=== PATIENT | female | born 1995 | race Caucasian/White ===

== ENCOUNTER 2018-05-31 19:06 | Outpatient (CLI) | payer OTHER ==
[2018-05-31] MEDS: ACETAMINOPHEN 500 MG TAB PO (20:24)
[2018-05-31 20:44] LABS: ADD MAN DIFF? NO
[2018-05-31 20:46] LABS: BASOPHILS % 0.2 % (0.0-2.0); EOSINOPHILS # 0.3 10^3/ul (0.0-0.5); EOSINOPHILS % 3.3 % (0.0-7.0); HEMOGLOBIN 8.9 g/dl (12.0-16.0); LYMPHOCYTES # 2.8 10^3/ul (0.8-2.9); LYMPHOCYTES % 27.4 % (15.0-51.0); MEAN CORPUSCULAR HEMOGLOBIN 22.1 pg (29.0-33.0); MEAN CORPUSCULAR HGB CONC 30.7 g/dl (32.0-37.0); MEAN PLATELET VOLUME 10.7 fl (7.4-10.4); MONOCYTE # 0.8 10^3/ul (0.3-0.9); MONOCYTES % 7.7 % (0.0-11.0); NEUTROPHIL # 6.2 10^3/ul (1.6-7.5); NEUTROPHILS % 60.6 % (39.0-77.0); PLATELET COUNT 271 10^3/UL (140-415); RED BLOOD COUNT 4.03 10^6/ul (4.20-5.40); RED CELL DISTRIBUTION WIDTH 16.2 % (11.5-14.5)
[2018-05-31 20:46] LABS: WHITE BLOOD COUNT 10.2 10^3/ul (4.8-10.8)
[2018-05-31 21:05] LABS: INR 0.93; PROTIME 12.6 Sec (11.9-14.9)
[2018-05-31 21:06] LABS: PARTIAL THROMBOPLASTIN TIME 30.8 Sec (23.0-35.0)
[2018-05-31 21:10] LABS: ALANINE AMINOTRANSFERASE 13 IU/L (13-69); ALBUMIN 3.3 g/dl (3.3-4.9); ALBUMIN/GLOBULIN RATIO 1.17; ALKALINE PHOSPHATASE 176 IU/L (42-121); ANION GAP 10 (8-16); ASPARTATE AMINO TRANSFERASE 19 IU/L (15-46); BILIRUBIN,INDIRECT 0.2 mg/dl (0-1.1); BILIRUBIN,TOTAL 0.2 mg/dl (0.2-1.3); BLOOD UREA NITROGEN 7 mg/dl (7-20); CALCIUM 9.2 mg/dl (8.4-10.2); CARBON DIOXIDE 23 mmol/L (21-31); CHLORIDE 108 mmol/L (97-110); GLUCOSE 93 mg/dl (70-220); POTASSIUM 3.8 mmol/L (3.5-5.1); SODIUM 137 mmol/L (135-144); TOTAL PROTEIN 6.1 g/dl (6.1-8.1); URIC ACID 4.5 mg/dl (3.1-7.9)
== END 2018-05-31 22:25 | disposition home or self-care (01) ==
LOC: OBT 19:06 → L-D 19:07 → OBT 22:25
DX: O36.8130 Decreased fetal movements, third trimester, not applicable or unspecified (principal); Z3A.38 38 weeks gestation of pregnancy
CPT/HCPCS: 76818; 80053; 84560; 85025; 85384; 85610; 85730

== ENCOUNTER 2018-06-06 04:07 | Inpatient (IN) | payer OTHER ==
[2018-06-06 05:30] LABS: RUPTURE FETAL MEMBRANES POSITIVE (NEGATIVE)
[2018-06-06] MEDS ORDERED: LACTATED RINGER'S 1,000 ML IV (06:21)
[2018-06-06] MEDS ORDERED: CARBOPROST 250 MCG INJ IM ×2 (06:30→15:00)
[2018-06-06] MEDS ORDERED: METHYLERGONOVINE 0.2 MG INJ IM ×2 (06:30→15:00)
[2018-06-06] MEDS ORDERED: MISOPROSTOL 200 MCG TAB PR ×2 (06:30→15:00)
[2018-06-06] MEDS ORDERED: OXYTOCIN 30 UNITS/LR 500 ML IV ×2 (06:30→15:00)
[2018-06-06] MEDS ORDERED: IBUPROFEN 600 MG TAB PO (06:30)
[2018-06-06] MEDS ORDERED: LIDOCAINE 1% (MPF) 30 ML INJ INJ (06:30)
[2018-06-06 06:31] LABS: ADD MAN DIFF? NO
[2018-06-06 06:33] LABS: BASOPHILS % 0.2 % (0.0-2.0); EOSINOPHILS # 0.4 10^3/ul (0.0-0.5); EOSINOPHILS % 3.8 % (0.0-7.0); HEMATOCRIT 30.1 % (37.0-47.0); HEMOGLOBIN 9.3 g/dl (12.0-16.0); LYMPHOCYTES # 2.7 10^3/ul (0.8-2.9); LYMPHOCYTES % 25.2 % (15.0-51.0); MEAN CORPUSCULAR HEMOGLOBIN 21.8 pg (29.0-33.0); MEAN CORPUSCULAR HGB CONC 30.9 g/dl (32.0-37.0); MEAN CORPUSCULAR VOLUME 70.5 fl (82.0-101.0); MEAN PLATELET VOLUME 10.7 fl (7.4-10.4); MONOCYTE # 0.6 10^3/ul (0.3-0.9); NEUTROPHIL # 6.8 10^3/ul (1.6-7.5); PLATELET COUNT 279 10^3/UL (140-415); RED BLOOD COUNT 4.27 10^6/ul (4.20-5.40); RED CELL DISTRIBUTION WIDTH 16.5 % (11.5-14.5)
[2018-06-06 06:33] LABS: WHITE BLOOD COUNT 10.7 10^3/ul (4.8-10.8)
[2018-06-06] MEDS: LACTATED RINGER'S 1,000 ML IV* ×4 (06:34→22:59)
[2018-06-06] MEDS: BUTORPHANOL 2 MG INJ IV (06:35)
[2018-06-06 06:52] LABS: INR 0.89; PARTIAL THROMBOPLASTIN TIME 30.4 Sec (23.0-35.0); PROTIME 12.1 Sec (11.9-14.9); PT RATIO 0.9
[2018-06-06] MEDS ORDERED: AMPICILLIN 2 GM/NS (PMX) 100 ML (07:04)
[2018-06-06] MEDS: AMPICILLIN 2 GM/NS (PMX) 100 ML IV (07:08)
[2018-06-06] MEDS ORDERED: FENTAnyl 2MCG/ML-ROPIV 0.2% 100 ML BAG EPI (08:00)
[2018-06-06] MEDS ORDERED: NALOXONE (0.4 MG/ML) INJ IV (08:00)
[2018-06-06 08:37] LABS: HEPATITIS B SURFACE ANTIGEN NEGATIVE (NEGATIVE)
[2018-06-06] MEDS ORDERED: SOD CHLORIDE 0.9% 1,000 ML IV (09:30)
[2018-06-06] MEDS ORDERED: AMPICILLIN 1 GM/NS (PMX) 50 ML IV (11:00)
[2018-06-06] MEDS: DEXTROSE 5%-LR 1,000 ML IV (11:10)
[2018-06-06] MEDS: OXYTOCIN 30 UNITS/LR 500 ML IV ×3 (13:47→15:10)
[2018-06-06] MEDS ORDERED: ZOLPIDEM 5 MG TAB PO (15:00)
[2018-06-06] MEDS ORDERED: DIPHENHYDRAMINE 25 MG CAP PO (15:00)
[2018-06-06 15:55] LABS: RAPID PLASMA REAGIN NONREACTIVE (NR)
[2018-06-06] MEDS: BENZOCAINE 20% 56 ML SPRAY TOP (17:09)
[2018-06-06] MEDS: LANOLIN 7 GM TUBE TOP (17:09)
[2018-06-06] MEDS: IBUPROFEN 800 MG TAB PO (17:09)
[2018-06-06] MEDS: WITCH HAZEL/GLYCERIN PAD PR (17:09)
[2018-06-07] MEDS: IBUPROFEN 800 MG TAB PO ×5 (01:00→23:45)
[2018-06-07] MEDS: HYDROCODONE/APAP (5/325) TAB PO (04:39)
[2018-06-07] MEDS: LACTATED RINGER'S 1,000 ML IV* ×3 (06:59→22:59)
[2018-06-07 07:48] LABS: ADD MAN DIFF? NO
[2018-06-07 07:49] LABS: BASOPHILS % 0.3 % (0.0-2.0); EOSINOPHILS # 0.4 10^3/ul (0.0-0.5); EOSINOPHILS % 2.8 % (0.0-7.0); HEMATOCRIT 29.4 % (37.0-47.0); HEMOGLOBIN 8.7 g/dl (12.0-16.0); LYMPHOCYTES # 2.8 10^3/ul (0.8-2.9); LYMPHOCYTES % 21.8 % (15.0-51.0); MEAN CORPUSCULAR HEMOGLOBIN 21.4 pg (29.0-33.0); MEAN CORPUSCULAR HGB CONC 29.6 g/dl (32.0-37.0); MEAN CORPUSCULAR VOLUME 72.2 fl (82.0-101.0); MEAN PLATELET VOLUME 10.6 fl (7.4-10.4); MONOCYTE # 0.8 10^3/ul (0.3-0.9); MONOCYTES % 6.4 % (0.0-11.0); NEUTROPHIL # 8.9 10^3/ul (1.6-7.5); NEUTROPHILS % 68.2 % (39.0-77.0); PLATELET COUNT 274 10^3/UL (140-415); RED BLOOD COUNT 4.07 10^6/ul (4.20-5.40); RED CELL DISTRIBUTION WIDTH 16.9 % (11.5-14.5)
[2018-06-07] MEDS: ACETAMINOPHEN 325 MG TAB PO (20:35)
[2018-06-07] MEDS: SENNA/DOCUSATE NA (8.6MG/50MG) TAB PO (23:45)
[2018-06-08] MEDS: IBUPROFEN 800 MG TAB PO ×2 (06:00→12:15)
[2018-06-08] MEDS: LACTATED RINGER'S 1,000 ML IV* (06:59)
[2018-06-08] MEDS: MAGNESIUM HYDROXIDE 30ML CUP PO (08:06)
[2018-06-08] MEDS: HYDROCODONE/APAP (5/325) TAB PO (08:06)
[2018-06-08] MEDS: DIPHTH/TET/ACEL PERTUSS (ADULT) 0.5 ML VIAL IM* (09:21)
[2018-06-08] MEDS: VARICELLA VACCINE LIVE/PF 1,350 UNIT/0.5 ML ML SC* (09:21)
[2018-06-08] MEDS: MEASLES,MUMPS,RUBELLA VACCINE INJ SC* (09:21)
== END 2018-06-08 13:40 | disposition home or self-care (01) | DRG 807 ==
LOC: OBT 04:07 → L-D 04:07 → OBT 05:47 → L-D 05:47 → PP1 15:08
PROVIDERS: Obstetrics & Gynecology
PROC: 10E0XZZ Delivery of Products of Conception, External Approach (ICD-10-PCS; principal; 2018-06-08)
DX: O80 Encounter for full-term uncomplicated delivery (principal); Z37.0 Single live birth; Z3A.39 39 weeks gestation of pregnancy
CPT/HCPCS: 62319; 84112; 85025; 85610; 85730; 86592; 86850; 86900; 86901; 87340; 99464